=== PATIENT | female | born 1955 | race African-American/Black ===

== ENCOUNTER → 2019-04-07 | Outpatient (CLI) | payer OTHER ==
[~2019-04-07] MED LIST: ACYCLOVIR 400400 MG PO; ASPIR 8181 MG PO; CIPROFLOXACIN500 M1 PO; CLONAZEPAM 1 MG1 M1 PO; DIOVAN HCT 3201 EACH PO; EFFEXOR25 MG; NORCO 5-325 TA1 EACH PO; NORVASC10 MG PO; ONE DAILY ESSE1 EACH PO; PERCOCET 10-321 EACH PO; PREDNISONE 10 M10 MG PO; REMERON15 MG PO; VISTARIL 25 MG25 M1 PO; VITAMIN B COMP1 EACH PO; VITAMIN D31000 UNIT PO; XARELTO20 MG PO; ZOFRAN ODT4 MG PO
--- NOTE | 2019-04-07 13:01 | EKG ---
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 : 1955 Requested By: Michelle Caal Order Number: [id number] MD: Pipo Sotelo Measurements Intervals [place] Rate: 76 P: 41 ME: 153 QRS: -20 QRSD: 107 T: 23 QT: 412 QTc: 464 Interpretive Statements Sinus rhythm Inferior infarct, old Poor R wave progression Compared to ECG 05/04/2008 10:48:12 No significant change was found Electronically Signed On 04-07-2019 13:01:40 CDT by Pipo Sotelo [email or web address] ��������������������������������������������� <ELECTRONICALLY SIGNED> ���������������������������������������� By: Pipo Sotelo MD, [facility] ��������������������������������������������� 04/07/19 1301 [id number] Pipo Sotelo MD, [facility] /EPI
== END | disposition home or self-care (01) ==
LOC: LITH 08:26
DX: N20.0 Calculus of kidney (principal); I10 Essential (primary) hypertension; E78.00 Pure hypercholesterolemia, unspecified; F32.9 Major depressive disorder, single episode, unspecified; Z86.010 Personal history of colon polyps; F41.9 Anxiety disorder, unspecified; Z90.49 Acquired absence of other specified parts of digestive tract; Z90.710 Acquired absence of both cervix and uterus; Z98.890 Other specified postprocedural states; Z88.8 Allergy status to other drugs, medicaments and biological substances